=== PATIENT | male | born 1935 ===

== ENCOUNTER 2017-12-06 11:30 | Inpatient (IN) | payer OTHER ==
[~2017-12-06] VITALS: Ht 152.4 cm; Wt 57.2 kg
[2017-12-06] MEDS ORDERED: TERAZOSIN HCL5 MG PO (14:20)
[2017-12-06] MEDS ORDERED: ZANTAC300 MG PO (14:20)
[2017-12-06] MEDS ORDERED: AMBIEN5 MG PO (14:20)
[2017-12-06] MEDS ORDERED: CATAFLAN PO (14:21)
[2017-12-16] MEDS ORDERED: DOCUSATE SODIU100 MG PO (10:26)
[2017-12-16] MEDS ORDERED: PERCOCET 5-3251 EACH PO (10:29)
[2017-12-16] MEDS ORDERED: CLONAZEPAM1 MG PO (10:29)
== END 2017-12-16 14:07 | disposition home or self-care (01) | DRG 454 ==
LOC: PED 12-15 05:00 → O/R 12-15 05:00 → SURG 12-15 09:45 → PED 12-15 11:53
PROVIDERS: Orthopaedic Surgery Orthopaedic Surgery of the Spine
PROC: 0RG2071 Fusion of 2 or more Cervical Vertebral Joints with Autologous Tissue Substitute, Posterior Approach, Posterior Column, Open Approach (ICD-10-PCS; 2017-12-15)
PROC: 0RT30ZZ Resection of Cervical Vertebral Disc, Open Approach (ICD-10-PCS; 2017-12-15)
PROC: 07DS3ZZ Extraction of Vertebral Bone Marrow, Percutaneous Approach (ICD-10-PCS; 2017-12-15)
PROC: 0RG20A0 Fusion of 2 or more Cervical Vertebral Joints with Interbody Fusion Device, Anterior Approach, Anterior Column, Open Approach (ICD-10-PCS; principal; 2017-12-15 09:45)
DX: M50.01 Cervical disc disorder with myelopathy, high cervical region (principal); M47.12 Other spondylosis with myelopathy, cervical region; I10 Essential (primary) hypertension; G47.33 Obstructive sleep apnea (adult) (pediatric)